=== PATIENT | female | born 2000 | race African-American/Black ===

== ENCOUNTER 2021-03-08 22:10 | Emergency (ER) | payer OTHER ==
[~2021-03-08] VITALS: Ht 160 cm; Wt 95.3 kg
[2021-03-08] MEDS ORDERED: AMOXICILLIN 50500 MG PO (22:21)
[2021-03-09 00:02] VITALS: BP 139/74
== END 2021-03-09 00:10 | disposition home or self-care (01) ==
LOC: ER 22:10
DX: J02.9 Acute pharyngitis, unspecified (principal)

== ENCOUNTER 2021-04-02 07:11 | Emergency (ER) | payer OTHER ==
[~2021-04-02] VITALS: Ht 160 cm; Wt 95.3 kg
[~2021-04-02 07:11] MED LIST: AMOXICILLIN 50500 MG PO
[2021-04-02 07:12] VITALS: BP 135/63
== END 2021-04-02 08:22 | disposition home or self-care (01) ==
LOC: ER 07:11
DX: S61.102A Unspecified open wound of left thumb with damage to nail, initial encounter (principal); W19.XXXA Unspecified fall, initial encounter; Y93.89 Activity, other specified; Y92.89 Other specified places as the place of occurrence of the external cause; Y99.8 Other external cause status